=== PATIENT | male | born 1975 | race Caucasian/White ===

== ENCOUNTER 2016-05-05 19:13 | Emergency (ER) | payer OTHER ==
--- NOTE | ~2016-05-05 | CT4 ---
[facility] A Service of [facility] & [facility] RADIOLOGY TEXT RESULTS PATIENT: TOY COPELAND LOCATION: [facility] : [birth year] UNIT #: [id number] AGE: [address]: Annel Whitten MD SEX: M ORDER DR: [id number] [facility] [address] [place], [place] [address] [id number] MR#: [id number] Acc #: [id number] NAME: TOY COPELAND : 1975 SEX: M STUDY DATE/TIME: 05/05/2016 19:29 UNIT: PRINCE ROOM: STUDY DESCRIPTION: CT Abd and Pelv Wo Cont Attending Physician: Annel Whitten M.D. Ordering Physician: Annel Whitten M.D. Primary Care Physician: Primary Care Physician No MEDICAL IMAGING REPORT This report is preliminary unless electronic signature is present EXAM CT abdomen and pelvis without IV contrast COMPARISON April 20, 2016 INDICATIONS 40-year-old male with right-sided flank abdominal pain and urinary hesitancy since last night. History of renal calculi and prior lithotripsy. FINDINGS Axial CT imaging of the abdomen and pelvis was performed without IV contrast. Coronal and sagittal reformats were constructed. Lack of IV contrast limits evaluation of adenopathy, vasculature and viscera. This CT exam was performed with one or more of the following radiation dose reduction techniques: Automatic exposure control, adjustment of mA and/or kV according to patient size, and iterative reconstruction. Large posterior disc protrusions with annular calcifications are noted at L5-S1 and at T11-T12 and T12-L1. The T11-T12 protrusion with annular calcification is likely causing significant central canal stenosis. This has not significantly changed from April 20, 2016. There are no acute fractures or suspicious osseous lesions. There are small posterior disc protrusions at L3-L4 and L4-L5 as well. Stable nodular density versus focal atelectasis abutting the anterior pleura in the right middle lobe measuring up to 4 mm. There is a stable noncalcified nodule in the posterior basilar segment right lower lobe measuring up to approximately 7 mm. There is also another noncalcified nodule in the left lower lobe abutting the major fissure measuring up to 6 mm, stable. Noncalcified nodule in the posterior basilar segment left lower lobe measures up to 1 cm, stable. Separate nodule in the lateral basilar segment of the left lower lobe which measures up to 9 mm, possibly minimally increased from STS. [facility] A Service of [facility] & [facility] RADIOLOGY TEXT RESULTS PATIENT: TOY COPELAND LOCATION: [facility] : [birth year] UNIT #: [id number] AGE: [address]: Annel Whitten MD SEX: M ORDER DR: April 20, 2016. This has suggestion of possible peripheral spiculation. Unenhanced liver, gallbladder, spleen and adrenal glands are within normal limits. There is fatty infiltration of the pancreas. There are bilateral nonobstructive renal calculi. There is a hypoattenuating area in the superior pole of the left kidney with negative internal Hounsfield units measuring up to 1.5 cm, possibly representing an angiomyolipoma. No evidence of associated hemorrhage. There is no ureteral calculus. No hydronephrosis or hydroureter. No calculi within the urinary bladder. There are central prostatic calcifications, a nonspecific finding perhaps related to remote prostatitis. Normal appendix. Single cecal diverticulum without evidence of acute diverticulitis. No bowel obstruction. Normal caliber of the abdominal aorta. No free fluid or pneumoperitoneum. Scattered mesenteric lymph nodes without pathologic enlargement by CT size criteria, likely reactive. IMPRESSION 1. Nonobstructive bilateral renal calculi. No evidence of acute obstructive uropathy. 2. 2 right-sided and 3 left-sided pulmonary nodules, largest of which measures up to 1 cm in the left lower lobe. The vast majority of these appear stable, but there is questionable increase in size of a single left lower lobe nodule measuring up to approximately 9 mm as compared to 8 mm previously. This has suggestion of peripheral spiculation. Consideration of PET CT is recommended for further characterization if the patient has risk factors for pulmonary malignancy or has history of known malignancy elsewhere. Alternatively, one could consider CT chest followup in 3 months to document stability. This could be performed without IV contrast. 3. Multilevel degenerative disc disease of the thoracolumbar spine with large posterior disc protrusions of the lower thoracic spine and at the lumbosacral junction. This is likely causing severe canal stenosis of the lower thoracic spinal canal as descrived above. Correlation for possible signs of neural impingement recommended. 4. Calcifications in the prostate gland likely reflecting remote prostatitis. 5. 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 No evidence of associated hemorrhage. Dictated by... Tank Buck M.D. THIS IS AN ELECTRONICALLY VERIFIED REPORT Tank Buck M.D. at 05/07/2016 2:00 PM [facility]/psc [facility]. [facility] A Service of [facility] RADIOLOGY TEXT RESULTS PATIENT: TOY COPELAND [id number] [birth year] UNIT #: [id number] AGE: [address]: Annel Whitten MD SEX: M ORDER DR: TD: 05/06/2016 00:01 JOB #: [id number] MEDICAL IMAGING REPORT COPY
[2016-05-05 19:16] LABS: BASOPHIL# 0.1 X10e3 (0-0.3); BASOPHIL% 0.9 % (0-2.5); EOSINOPHIL# 0.2 X10e3 (0-0.7); EOSINOPHIL% 1.9 % (0.0-7.0); HEMOGLOBIN 14.9 gm/dL (13.0-16.0); LYMPHOCYTE# 3.2 X10e3 (1.0-3.5); LYMPHOCYTE% 37.4 % (17.0-45.0); MEAN CELL VOLUME 88.6 FL (83-96); MEAN CORPUSCULAR HEMOGLOBIN 29.9 PG (28-34); MEAN CORPUSCULAR HGB CONC 33.8 g/dL (30-36); MEAN PLATELET VOLUME 8.9 FL (6.5-11.5); MONOCYTE# 0.7 X10e3 (0-1.0); MONOCYTE% 8.3 % (3.0-12.0); NEUTROPHIL# 4.4 X10e3 (1.5-7.1); NEUTROPHIL% 51.5 % (40-75); PLATELET COUNT 211 X10e3 (140-420); RED BLOOD COUNT 4.96 X10e (3.90-5.60); RED CELL DISTRIBUTION WIDTH 13.5 % (11.0-15.5); WHITE BLOOD COUNT 8.5 X10e3 (4.0-10.5)
[2016-05-05 19:23] LABS: DIFF IND NO
[2016-05-05 19:43] LABS: BLOOD UREA NITROGEN 18 mg/dL (9-23); CALCIUM SERUM 9.2 mg/dL (8.4-10.2); CARBON DIOXIDE 28 mmol/L (22-31); CHLORIDE 100 mmol/L (100-111); CREATININE SERUM 0.9 mg/dL (0.6-1.4); GLOM FILT RATE Estimated ABOVE60 mL/min (>60); GLUCOSE FASTING 220 mg/dL (70-110); POTASSIUM 3.4 mmol/L (3.5-5.1); SODIUM 135 mmol/L (135-145)
[2016-05-05 19:44] LABS: URINE SOURCE CLEAN CATCH
[2016-05-05 19:48] LABS: URINE APPEARANCE CLOUDY; URINE BILIRUBIN NEG (NEG); URINE BLOOD NEG (NEG); URINE COLOR DK YELLOW; URINE GLUCOSE 500 MG/DL (NEG); URINE KETONE TRACE (NEG); URINE LEUKOCYTE ESTERASE 2+ (NEG); URINE NITRATE POS (NEG); URINE PH 5.5 (5-8); URINE PROTEIN NEG (NEG); URINE SPECIFIC GRAVITY 1.023 (1.003-1.035)
[2016-05-05 19:50] LABS: CULTURE INDICATED? YES; URINE BACTERIA AUWI 2+ (NEGATIVE); URINE SQUAMOUS EPITHELIAL CELL OCC /[HPF]; UWBCS1 AUWI 25-50 (0-5)
[2016-05-05 20:04] LABS: URINE CRYSTALS CALCIUM OXALATE /[HPF]
== END 2016-05-05 21:40 | disposition home or self-care (01) ==
LOC: CED 19:13
PROVIDERS: Emergency Medicine
DX: N39.0 Urinary tract infection, site not specified (principal); F17.210 Nicotine dependence, cigarettes, uncomplicated; Z88.8 Allergy status to other drugs, medicaments and biological substances
CPT/HCPCS: 36415; 74176; 80048; 81003; 85025; 87086; 87088; 87186; 99284; J1885